=== PATIENT | female | born 1950 | race Caucasian/White ===

== ENCOUNTER 2017-05-08 18:33 | Inpatient (IN) | payer OTHER ==
[~2017-05-08] VITALS: Ht 170.2 cm; Wt 65.3 kg
[2017-05-08 18:33] VITALS: BP 155/81
--- NOTE | 2017-05-08 18:35 | NUR ---
67/F BIBA FOR ALOC X3 HOURS; PT BIBA FROM [facility] [place] FOR [place]OC. HX A.FIB, HTN, COPD. BRUISE TO R HIP.BLL SWELLING. LUNGS CLEAR BL; PATIENT POSITIONED FOR COMFORT; HOB ELEVATED; BEDRAILS UP X2; BED DOWN. ER MD MADE AWARE OF PT STATUS.
[2017-05-08] MEDS ORDERED: NACL 0.9% 1,000 ML IV ONE (18:40)
[2017-05-08] MEDS ORDERED: UMEC1POW IH (18:47)
[2017-05-08] MEDS ORDERED: PANT40EC PO (18:47)
[2017-05-08] MEDS ORDERED: LEVA0.6318 INH (18:47)
[2017-05-08] MEDS ORDERED: ALBU1SPR IH (18:47)
[2017-05-08] MEDS ORDERED: SENN-73 PO (18:47)
[2017-05-08] MEDS ORDERED: FOLI1TAB89 PO (18:47)
[2017-05-08] MEDS ORDERED: VITB12 PO (18:47)
[2017-05-08] MEDS ORDERED: ACET-2869 PO (18:47)
[2017-05-08] MEDS ORDERED: FERR325E14 PO (18:47)
[2017-05-08] MEDS ORDERED: VITD1000 PO (18:47)
--- NOTE | 2017-05-08 19:10 | NUR ---
CT CALLED TO TAKE PT TO CT
[2017-05-08 19:55] LABS: ANION GAP 17.2 (8-16); CREATININE 1.3 mg/dL (0.6-1.3); POTASSIUM 4.2 mmol/L (3.5-5.1); TOTAL BILIRUBIN 4.8 mg/dL (0.0-1.0)
[2017-05-08 19:59] LABS: RED BLOOD CELL COUNT(AUTO) 2.49 MIL/uL (4.20-5.40); WHITE BLOOD COUNT (AUTO) 5.1 K/uL (4.8-10.8)
[2017-05-08 20:00] LABS: HEMATOCRIT 25.9 % (36-48); HEMOGLOBIN 8.6 g/dL (12.0-16.0); MEAN CORPUSCULAR HEMOGLOBIN 34 pg (27-31); MEAN CORPUSCULAR HGB CONC 33 g/dL (33-37); MEAN CORPUSCULAR VOLUME 104 fL (80-94)
[2017-05-08] MEDS ORDERED: MORPHINE SULFATE 2 MG/ML SYR IVP ONE (20:00)
[2017-05-08 20:01] LABS: PLATELET COUNT (AUTO) 99 K/uL (140-450)
[2017-05-08 20:07] LABS: NEUTROPHILS % (AUTO) 73.3 % (42.2-75.2)
[2017-05-08 20:08] LABS: BASOPHILS % (AUTO) 0.3 % (0.0-2.0); EOSINOPHILS % (AUTO) 0.5 % (0.0-4.0); LYMPHOCYTES # (AUTO) 0.8 K/uL (2.5-16.5); LYMPHOCYTES % (AUTO) 15.1 % (20.5-51.1); MONOCYTES # (AUTO) 0.6 K/uL (0.8-1.0); MONOCYTES % (AUTO) 10.8 % (1.7-9.3); NEUTROPHILS # (AUTO) 3.8 K/uL (1.8-7.7)
[2017-05-08 20:22] LABS: APPEARANCE,URINE CLOUDY (CLEAR); BILIRUBIN,URINE NEGATIVE (NEGATIVE); BLOOD, URINE 3+ (NEGATIVE); COLOR,URINE YELLOW (YELLOW); LEUKOCYTE ESTERASE ,URINE 1+ (NEGATIVE); NITRITE, URINE NEGATIVE (NEGATIVE); UGLUCOSE NEGATIVE (NEGATIVE)
--- NOTE | 2017-05-08 20:30 | NUR ---
PT TAKEN TO CT
[2017-05-08] MEDS ORDERED: NACL 0.9% 2,000 ML IV ONE (20:40)
[2017-05-08 20:41] LABS: RBC,URINE TOO NUMEROUS TO COUN /HPF (0-5); WBC,URINE TOO MANY TO COUNT /HPF (0-5)
--- NOTE | 2017-05-08 21:06 | NUR ---
PT BACK FROM CT
[2017-05-08] MEDS ORDERED: LEVOFLOXACIN 500 MG/D5W PREMIX 100 ML IV ONE (21:15)
--- NOTE | 2017-05-08 21:15 | NUR ---
LABS CALLED FOR BLOOD CX DRAW, PER LAB " WE WILL BE RIGHT THERE"
[2017-05-08] MEDS: NACL 0.9% 1,000 ML IV SCH (21:41)
[2017-05-08] MEDS ORDERED: KETOROLAC 30 MG/ML VIAL IVP PRN (21:45)
[2017-05-08] MEDS ORDERED: DOCUSATE SODIUM 100 MG GELCAP PO PRN (21:45)
[2017-05-08] MEDS ORDERED: ACETAMINOPHEN 325 MG TAB PO PRN (21:45)
[2017-05-08] MEDS ORDERED: HYDROcodone/APAP 7.5/325 MG 1 TAB PO PRN (21:45)
[2017-05-08] MEDS ORDERED: ONDANSETRON 4 MG/2 ML VIAL IM/IVP PRN (21:45)
--- NOTE | 2017-05-08 22:00 | NUR ---
Patient will be admitted to care of [facility]. Admited to TELE. Will go to room 106A. Belongings list completed. BEDSIDE Report to DANIEL PLUMMER. IV PATENT AND INFUSING
[2017-05-08 22:05] VITALS: BP 137/59
--- NOTE | 2017-05-08 22:05 | NUR ---
PATIENT ADMITTED TO THE UNIT FROM ER. PATIENT IS AOX1. UNABLE TO ANSWER QUESTION DUE TO MENTAL STATUS. NO SIGNS AND SYMPTOMS OF DISTRESS NOTED AT THIS TIME. FLACC 0. PATIENT IS ON O2 2L VIA NC. IV SITE NOTED ON LEFT HAND, IVF INFUSING WELL. SAFETY PRECAUTIONS IN PLACE. VITAL SIGNS AND MRSA TAKEN. BED IN LOWEST POSITION, SIDE RAILS UP AND CALL LIGHT WITHIN REACH. WILL CONTINUE TO MONITOR.
--- NOTE | 2017-05-08 22:30 | NUR ---
PATIENT'S SON DANELLE PRESENT AT BEDSIDE. WAS ABLE TO ANSWER SOME QUESTIONS ABOUT PATIENT'S MEDICAL HISTORY.
[2017-05-08 22:49] LABS: PROTHROMBIN TIME 14.8 secs (10.8-13.4)
[2017-05-08 23:11] LABS: CHOL/HDL RATIO 3.7 (1-4.5); MAGNESIUM 1.6 mg/dL (1.8-2.4); PHOSPHORUS 3.2 mg/dL (2.5-4.9); THYROID STIMULATING HORMONE 2.03 uIU/mL (0.34-3.74)
[2017-05-09] VITALS: BP 149/75
--- NOTE | 2017-05-09 00:40 | NUR ---
PATIENT TRIED GETTING OUT OF BED. PATIENT IS CONFUSED, TRYING TO PULL OUT IV AND TELE LEADS. TRIED TO REORIENT PATIENT. ASSISTED HER BACK INTO BED WITH MANUFACTURING ENGINEER SUPERVISOR. PATIENT RESTLESS, MOANING IN PAIN. FLACC 7. WILL MEDICATE ORDERED.
[2017-05-09] MEDS: MORPHINE SULFATE 4 MG/ML SYR IVP PRN (00:54)
[2017-05-09] MEDS ORDERED: cefTRIAXone 1,000 MG VIAL ONE (01:54)
--- NOTE | 2017-05-09 03:00 | NUR ---
CHECKED ON PATIENT. PATIENT IS ASLEEP. NO SIGNS AND SYMPTOMS OF DISTRESS NOTED. BREATHING EVEN AND UNLABORED. WILL CONTINUE TO MONITOR.
[2017-05-09 04:00] VITALS: BP 143/60
[2017-05-09] MEDS ORDERED: diphenhydrAMINE 50 MG/ML VIAL IVP SCH (05:00)
--- NOTE | 2017-05-09 05:00 | NUR ---
PATIENT TRIED GETTING OUT OF BED. PATIENT IS CONFUSED, TRYING TO PULL OUT IV AND TELE LEADS. TRIED TO REORIENT PATIENT. NOTIFIED DR. ANNE. ORDERS RECEIVED
[2017-05-09] MEDS: NACL 0.9% 1,000 ML IV SCH ×2 (06:35→18:30)
--- NOTE | 2017-05-09 07:30 | NUR ---
PATIENT REPORT GIVEN TO MORNING NURSE AT BEDSIDE FOR CONTINUITY OF CARE. PATIENT IS IN STABLE CONDITION.
[2017-05-09 08:00] VITALS: BP 156/82
[2017-05-09] MEDS ORDERED: PANTOPRAZOLE 40 MG INJ VIAL IVP SCH (09:00)
[2017-05-09] MEDS: SENNA 8.6 MG TAB PO SCH ×3 (10:01→21:00)
[2017-05-09] MEDS: LACTOBACILLUS RHAMNOSUS GG 1 EACH CAP PO SCH ×2 (10:01→10:07)
[2017-05-09] MEDS: FERROUS SULFATE 325 MG TABEC PO SCH ×3 (10:01→18:29)
--- NOTE | 2017-05-09 10:06 | NUR ---
PATIENT HAS BEEN SCREENED AND CATEGORIZED HIGH NUTRITION RISK. PATIENT WILL BE SEEN WITHIN 1-2 DAYS OF ADMISSION. 05/08/17-05/09/[address]
[2017-05-09 12:00] VITALS: BP 153/67
--- NOTE | 2017-05-09 14:00 | NUR ---
05/09/2017 RD INITIAL ASSESSMENT COMPLETED PLEASE REFER TO NUTRITION ASSESSMENT UNDER CARE ACTIVITY FOR ESTIMATED NUTRITIONAL NEEDS. NURSING AND DIETARY STAFF TO ENCOURAGE INCREASED INTAKE MENTAL STATUS IMPROVES RD TO FOLLOW-UP IN 2-3 DAYS PATIENT IS HIGH RISK. MAGGIE ROBERTSON, RD
[2017-05-09 16:00] VITALS: BP 145/70
--- NOTE | 2017-05-09 17:05 | NUR ---
FAXED INITIAL REVIEW TO [facility] [phone] PHONE [phone], SETH
--- NOTE | 2017-05-09 19:30 | NUR ---
PATIENT REPORT RECEIVED FROM MORNING NURSE AT BEDSIDE. PATIENT CURRENTLY GETTING ULTRASOUND. NO SIGNS AND SYMPTOMS OF DISTRESS NOTED. PATIENT AOX1. IV SITE ON LEFT HAND, IVF INFUSING WELL. PATIENT ON O2 2L NC. SAFETY PRECAUTIONS IN PLACE. BED IN LOWEST POSITION, SIDE RAILS UP AND CALL LIGHT WITHIN REACH. WILL CONTINUE TO MONITOR.
[2017-05-09 20:00] VITALS: BP 152/82
[2017-05-09] MEDS: CHOLECALCIFEROL 1,000 IU TAB PO SCH ×2 (20:42→21:00)
[2017-05-09] MEDS: FOLIC ACID 1 MG TAB PO SCH (21:00)
[2017-05-09] MEDS: CYANOCOBALAMIN 1,000 MCG TAB PO SCH (21:00)
--- NOTE | 2017-05-09 21:26 | NUR ---
MEDICATION EDUCATION GIVEN TO PATIENT. PATIENT SPIT OUT VIT D TAB. VIT D WASTED. PATIENT REFUSED ALL OTHER MEDS. DR. ANNE NOTIFIED OF PATIENT'S REFUSAL OF MEDS
[2017-05-10] VITALS: BP 145/78
--- NOTE | 2017-05-10 | NUR ---
CHECKED ON PATIENT. PATIENT IS ASLEEP. NO SIGNS AND SYMPTOMS OF DISTRESS NOTED. BREATHING EVEN AND UNLABORED. WILL CONTINUE TO MONITOR.
[2017-05-10] MEDS: MORPHINE SULFATE 4 MG/ML SYR IVP PRN (01:46)
[2017-05-10] MEDS ORDERED: MAG SULF 2000 MG/WATER PREMIX 50 ML IV SCH (03:00)
[2017-05-10] MEDS: NACL 0.9% 1,000 ML IV SCH ×2 (03:41→13:24)
[2017-05-10 04:00] VITALS: BP 139/80
--- NOTE | 2017-05-10 04:00 | NUR ---
CHECKED ON PATIENT. PATIENT IS ASLEEP. NO SIGNS AND SYMPTOMS OF DISTRESS NOTED. BREATHING EVEN AND UNLABORED. WILL CONTINUE TO MONITOR.
[2017-05-10] MEDS: PANTOPRAZOLE 40 MG TABEC PO SCH (06:13)
[2017-05-10 06:42] LABS: BASOPHILS # (AUTO) 0.1 K/uL (0.00-0.22); BASOPHILS % (AUTO) 2.9 % (0.0-2.0); EOSINOPHILS # (AUTO) 0.1 K/uL (0-0.4); EOSINOPHILS % (AUTO) 2.2 % (0.0-4.0); HEMATOCRIT 24.6 % (36-48); HEMOGLOBIN 8.3 g/dL (12.0-16.0); LYMPHOCYTES % (AUTO) 20.7 % (20.5-51.1); MEAN CORPUSCULAR HEMOGLOBIN 35 pg (27-31); MEAN CORPUSCULAR HGB CONC 34 g/dL (33-37); MEAN CORPUSCULAR VOLUME 103 fL (80-94); MONOCYTES # (AUTO) 0.5 K/uL (0.8-1.0); MONOCYTES % (AUTO) 9.4 % (1.7-9.3); NEUTROPHILS # (AUTO) 3.2 K/uL (1.8-7.7); NEUTROPHILS % (AUTO) 64.8 % (42.2-75.2); PLATELET COUNT (AUTO) 94 K/uL (140-450); RED CELL DISTRIBUTION WIDTH 20.5 % (11.6-13.7); WHITE BLOOD COUNT (AUTO) 4.9 K/uL (4.8-10.8)
[2017-05-10 07:23] LABS: T4 (THYROXINE) 8.3 ug/dL (4.5-12.0)
--- NOTE | 2017-05-10 07:30 | NUR ---
PATIENT REPORT GIVEN TO MORNING NURSE AT BEDSIDE. PATIENT IS IN STABLE CONDITION.
--- NOTE | 2017-05-10 07:31 | NUR ---
RECEIVED REPORT FROM ARTIFICIAL FOLIAGE ARRANGER RN. PATIENT HAS NO SIGNS AND SYMPTOMS OF ACUTE DISTRESS NOTED AT THIS TIME. ALL SAFETY MEASURES ARE IN PLACE. IV INFUSING WELL AT THIS TIME. WILL CONTINUE TO MONITOR.
[2017-05-10 07:34] LABS: MAGNESIUM 1.8 mg/dL (1.8-2.4); PHOSPHORUS 2.8 mg/dL (2.5-4.9)
[2017-05-10 07:37] LABS: ANION GAP 17.3 (8-16); CARBON DIOXIDE 15.1 mmol/L (21-32); CREATININE 1.1 mg/dL (0.6-1.3); POTASSIUM 3.4 mmol/L (3.5-5.1)
[2017-05-10 08:00] VITALS: BP 151/82
[2017-05-10 08:18] LABS: FOLIC ACID > 20.00 ng/mL (>3.0)
[2017-05-10] MEDS: LACTULOSE 20 GM/30 ML UDC PO SCH ×3 (09:25→17:25)
[2017-05-10] MEDS: FERROUS SULFATE 325 MG TABEC PO SCH ×3 (09:37→17:25)
[2017-05-10] MEDS ORDERED: POTASSIUM CHLORIDE 20% 40 MEQ/15 ML UDC PO SCH (12:35)
[2017-05-10] MEDS ORDERED: LISINOPRIL 5 MG TAB PO SCH (13:05)
[2017-05-10] MEDS: NEOMYCIN 500 MG TAB PO SCH ×3 (13:27→23:37)
--- NOTE | 2017-05-10 19:30 | NUR ---
ENDORSED PATIENT TO VEST BUSHELER RN FOR CONTINUITY OF CARE. PATIENT IN STABLE CONDITION.
--- NOTE | 2017-05-10 19:30 | NUR ---
RECEIVED PT SLEEPING, AROUSABLE TO TOUCH, AAOX1, VERBALLY RESPONSIVE AND ABLE FOLLOW COMMANDS, ON O2 AT 2L/NC, NO SOB NOTED, FLACC-0, IVF INFUSING WELL, SCD'S IN PLACE, PITTING EDEMA NOTED TO BLE, SAFETY MEASURES IN PLACE, WILL REPOSITION Q2H AND OFFLOAD PRESSURE AREAS, SIDE RAILS UP AND BED ALARM ON, CALL LIGHT WITHIN REACH.
[2017-05-10] MEDS: FOLIC ACID 1 MG TAB PO SCH (20:26)
[2017-05-10] MEDS: SENNA 8.6 MG TAB PO SCH (20:27)
[2017-05-10] MEDS: CHOLECALCIFEROL 1,000 IU TAB PO SCH (20:28)
[2017-05-10] MEDS: CYANOCOBALAMIN 1,000 MCG TAB PO SCH (20:35)
--- NOTE | 2017-05-10 20:35 | NUR ---
DUE PO MEDS CRUSHED AND GIVEN WITH APPLE SAUCE FOLLOWED BY ORANGE JUICE, PT TOOK A LONG TIME TO TAKE MEDS AND NEEDS A LOT OF ENCOURAGEMENT BUT ABLE TO TOLERATE WELL, DUE ROCEPHIN IVPB ADMINISTERED, ALL NEEDS ATTENDED.
--- NOTE | 2017-05-10 22:10 | NUR ---
PT INCONTINENT OF URINE, PERINEAL CARE DONE, NO BM AT THIS TIME, REPOSITIONED AND OFFLOAD PRESSURE AREAS, MONITORED CLOSELY.
[2017-05-11] VITALS: BP 148/57
--- NOTE | 2017-05-11 | NUR ---
PT SLEEPING, EASILY AROUSABLE, DUE MEDICATION CRUSHED AND GIVEN WITH APPLE SAUCE, TOLERATED WELL, VITAL SIGNS STABLE, NO SIGNS OF DISTRESS, CONTINUE TO MONITOR CLOSELY.
[2017-05-11 03:44] LABS: CARBON DIOXIDE 15.6 mmol/L (21-32); POTASSIUM 3.6 mmol/L (3.5-5.1)
[2017-05-11 03:45] LABS: CREATININE 1.2 mg/dL (0.6-1.3)
--- NOTE | 2017-05-11 04:30 | NUR ---
BM WITH SOFT BLACK STOOL MODERATE AMOUNT, STOOL OB SPECIMEN SENT TO LAB.
[2017-05-11] MEDS: NEOMYCIN 500 MG TAB PO SCH ×3 (06:29→20:16)
[2017-05-11] MEDS: PANTOPRAZOLE 40 MG TABEC PO SCH (06:29)
[2017-05-11] MEDS: NACL 0.9% 1,000 ML IV SCH (06:33)
[2017-05-11 07:03] LABS: BASOPHILS # (AUTO) 0.2 K/uL (0.00-0.22); BASOPHILS % (AUTO) 4.7 % (0.0-2.0); EOSINOPHILS # (AUTO) 0.2 K/uL (0-0.4); EOSINOPHILS % (AUTO) 4.8 % (0.0-4.0); HEMATOCRIT 23.5 % (36-48); HEMOGLOBIN 7.8 g/dL (12.0-16.0); LYMPHOCYTES % (AUTO) 22.1 % (20.5-51.1); MEAN CORPUSCULAR HEMOGLOBIN 34 pg (27-31); MEAN CORPUSCULAR HGB CONC 33 g/dL (33-37); MEAN CORPUSCULAR VOLUME 103 fL (80-94); MONOCYTES # (AUTO) 0.5 K/uL (0.8-1.0); MONOCYTES % (AUTO) 10.1 % (1.7-9.3); NEUTROPHILS # (AUTO) 2.6 K/uL (1.8-7.7); NEUTROPHILS % (AUTO) 58.3 % (42.2-75.2); PLATELET COUNT (AUTO) 94 K/uL (140-450); RED BLOOD CELL COUNT(AUTO) 2.28 MIL/uL (4.20-5.40); RED CELL DISTRIBUTION WIDTH 19.9 % (11.6-13.7); WHITE BLOOD COUNT (AUTO) 4.5 K/uL (4.8-10.8)
--- NOTE | 2017-05-11 07:20 | NUR ---
PT SLEEPING, NO SIGNS OF DISTRESS, REPORT GIVEN TO RIKI FOR CONTINUITY OF CARE.
--- NOTE | 2017-05-11 07:20 | NUR ---
ASSUMED CONTINUITY OF CARE. NO SIGNS AND SYMPTOMS OF ACUTE DISTRESS NOTED. INITIAL ASSESSMENT DONE. RE-ORIENTED TO EVENTS AND SURROUNDINGS. KEEP COMFORTABLE ON BED. EXPLAINED DIAGNOSIS, PLAN OF CARE, PAIN MANAGEMENT TEACHING, CONTACT ISOLATION PRECAUTION, USE OF CALL LIGHT/BED/TV/BATHROOM. FALL PRECAUTION APPLIED. CALL LIGHT WITHIN REACH.
[2017-05-11 08:00] VITALS: BP 142/64
--- NOTE | 2017-05-11 08:00 | NUR ---
Patient's Plan of Care was discussed and reviewed with FUNDRAISING SPECIALIST: RIKI
[2017-05-11] MEDS: FERROUS SULFATE 325 MG TABEC PO SCH (08:40)
[2017-05-11] MEDS: LACTULOSE 20 GM/30 ML UDC PO SCH ×3 (08:41→17:08)
[2017-05-11] MEDS: LACTOBACILLUS RHAMNOSUS GG 1 EACH CAP PO SCH (08:41)
[2017-05-11] MEDS: SENNA 8.6 MG TAB PO SCH ×2 (08:41→20:15)
[2017-05-11 08:55] LABS: ANION GAP 15.8 (8-16); CARBON DIOXIDE 15.3 mmol/L (21-32); CREATININE 1.1 mg/dL (0.6-1.3); POTASSIUM 3.1 mmol/L (3.5-5.1)
[2017-05-11] MEDS ORDERED: LISINOPRIL 5 MG TAB PO SCH (09:00)
[2017-05-11 09:01] LABS: MAGNESIUM 1.9 mg/dL (1.8-2.4)
[2017-05-11] MEDS ORDERED: POTASSIUM CHLORIDE 20% 40 MEQ/15 ML UDC PO SCH (10:15)
--- NOTE | 2017-05-11 10:20 | NUR ---
ADMINISTERED IV ABX. PT TOLERATING WELL.
[2017-05-11] MEDS ORDERED: POTASSIUM CHLORIDE 40 MEQ, LIDOCAINE 1% 25 MG in NACL 0.9% 250 ML IV ONE (10:45)
--- NOTE | 2017-05-11 11:06 | NUR ---
05/11/17 RD FOLLOW UP COMPLETED PLEASE REFER TO NUTRITION PROGRESS NOTE UNDER CARE ACTIVITY FOR ESTIMATED NUTRITION NEEDS. RD RECOMMENDATIONS: 1.NURSING AND DIETARY STAFF TO ENCOURAGE INCREASED INTAKE MENTAL STATUS IMPROVES. 2.RDN TO PROVIDE HEALTH SHAKES WITH MEALS TID TO HELP MEET NUTRITION NEEDS. 3.RDN TO FOLLOW-UP IN 2-3 DAYS PATIENT IS HIGH RISK. VIKAS SEALS MS, RDN
[2017-05-11] MEDS ORDERED: SPIRONOLACTONE 25 MG TAB PO SCH (11:26)
[2017-05-11 12:00] VITALS: BP 149/73
[2017-05-11] MEDS: FERRIC GLUCONATE 125 MG in NACL 0.9% 100 ML IV SCH (12:05)
--- NOTE | 2017-05-11 15:05 | NUR ---
PT. INES HAWK CAME, EXPLAINED ABOUT DR. LOBO ORDER OF CONSENT FOR EGD/COLONOSCOPY. PER PTEsther HAWK, PT. HAD EGD IN [facility] ON MAY 01, 2017. PT. INES HAWK SIGNED COLONOSCOPY CONSENT. ASKED FOR ANY CONCERN OR QUESTION REGARDING COLONOSCOPY. NO QUESTION OR CONCERN RECEIVED. INFORMED CHARGE NURSE ISIDRO ORTEZ.
--- NOTE | 2017-05-11 15:23 | NUR ---
CALLED DR. LOBO AND INFORMED THAT PER PT. SON -DANELLE, PT. HAD EGD ON MAY 01, 2017 IN [facility], AND DANELLE JUST SIGNED COLONOSCOPY CONSENT FORM. DR. LOBO SAID THAT'S FINE, WE ARE JUST WAITING FOR MEDICAL RECORDS FROM [facility]. INFORMED CHARGE NURSE ISIDRO ORTEZ.
--- NOTE | 2017-05-11 19:10 | NUR ---
RECEIVED PT AWAKE WATCHING TV, IVF OFF AT THIS TIME, PT WANTS TO KNOW WHAT TIME CAN HE HAVE HIS NEXT PAIN MEDICATION, MADE AWARE OF NEXT DUE TIME, TOLERATING FULL LIQUID DIET, PLAN OF CARE DISCUSS, CALL LIGHT WITHIN REACH. Addendum: 05/11/17 at 2125 by Theodore Pearson RN CHARTED ON WRONG PT.
--- NOTE | 2017-05-11 19:10 | NUR ---
REPORT GIVEN TO ANNIE ORTEZ. IVF INFUSING WELL. IN STABLE CONDITION.
--- NOTE | 2017-05-11 19:12 | NUR ---
RECEIVED PT SLEEPING, EASILY AROUSABLE, AAOX2, FORGETFUL AT TIMES, ON O2 AT 2L/NC, NO SOB NOTED, MITTENS IN PLACE, IVF INFUSING WELL, DENIES ANY PAIN, SCD IN PLACE, ON FALL PRECAUTION, SIDE RAILS UP AND BED ALARM ON, CALL LIGHT WITHIN REACH.
[2017-05-11] MEDS: CHOLECALCIFEROL 1,000 IU TAB PO SCH (20:15)
[2017-05-11] MEDS: POTASSIUM CHLORIDE 20% 40 MEQ/15 ML UDC GT SCH (20:16)
[2017-05-11] MEDS: FOLIC ACID 1 MG TAB PO SCH (20:16)
--- NOTE | 2017-05-11 20:20 | NUR ---
DUE PO MEDS CRUSHED AND GIVEN WITH CHOCOLATE PUDDING, TOLERATED WELL, PT WITH SOFT MODERATE BM, PERINEAL CARE DONE, DUE ANUCORT SUPP GIVEN, REPOSITIONED Q2H AND OFFLOAD PRESSURE AREAS, ALL NEEDS ATTENDED.
[2017-05-11] MEDS ORDERED: HYDROCORTISONE ACETATE 25 MG SUPP RC SCH (21:00)
--- NOTE | 2017-05-11 22:00 | NUR ---
ROUNDS MADE, PT STILL AWAKE, PT ANXIOUS ABOUT PROCEDURE TOMORROW, PT MADE AWARE THAT PER REPORT FROM AM NURSE RIKI, PROCEDURE IS BE DONE ON FRIDAY OR IN 2 DAYS, PT SAID "NANCY", COLONOSCOPY CONSENT WAS SIGNED BY PT'S SON.
[2017-05-12] VITALS: BP 145/68
--- NOTE | 2017-05-12 | NUR ---
PT SLEEPING, AROUSABLE TO TOUCH, VITAL SIGNS SLIGHTLY ELEVATED BUT STABLE, DENIES ANY PAIN, IVF INFUSING WELL, CONTINUE TO MONITOR CLOSELY.
--- NOTE | 2017-05-12 03:40 | NUR ---
PT HAD MODERATE SOFT BLACK STOOL, PERINEAL CARE DONE, CONTINUE TO REPOSITIONED AND OFFLOAD PRESSURE AREAS.
[2017-05-12] MEDS: NACL 0.9% 1,000 ML IV SCH (04:30)
[2017-05-12] MEDS: PANTOPRAZOLE 40 MG TABEC PO SCH (05:33)
[2017-05-12] MEDS: NEOMYCIN 500 MG TAB PO SCH ×3 (05:34→20:19)
--- NOTE | 2017-05-12 05:35 | NUR ---
DUE PO MEDICATIONS GIVEN WITH CHOCOLATE PUDDING, TOLERATED WELL, REQUESTING FOR APPLE JUICE, ABLE TO FINISHED HALF OF IT, IVF INFUSING WELL, SIDE RAILS UP AND BED ALARM ON, MONITORED CLOSELY.
[2017-05-12 06:55] LABS: HEMATOCRIT 24.4 % (36-48); MEAN CORPUSCULAR HEMOGLOBIN 34 pg (27-31); MEAN CORPUSCULAR HGB CONC 33 g/dL (33-37); MEAN CORPUSCULAR VOLUME 102 fL (80-94); PLATELET COUNT (AUTO) 93 K/uL (140-450); RED BLOOD CELL COUNT(AUTO) 2.38 MIL/uL (4.20-5.40); RED CELL DISTRIBUTION WIDTH 19.6 % (11.6-13.7); WHITE BLOOD COUNT (AUTO) 4.2 K/uL (4.8-10.8)
--- NOTE | 2017-05-12 07:15 | NUR ---
PT AWAKE, NO SIGNS OF DISTRESS, BEDSIDE REPORT GIVEN TO KAVITHA HUYNH FOR CONTINUITY OF CARE.
[2017-05-12 07:37] LABS: EOSINOPHILS % (MANUAL) 7 % (0-4); LYMPHOCYTES % (MANUAL) 27 % (20-46); MONOCYTES % (MANUAL) 6 % (5-12)
[2017-05-12 07:40] LABS: ANION GAP 16.6 (8-16); CARBON DIOXIDE 14.4 mmol/L (21-32)
[2017-05-12 07:46] LABS: MAGNESIUM 1.7 mg/dL (1.8-2.4); PHOSPHORUS 2.6 mg/dL (2.5-4.9)
[2017-05-12 08:00] VITALS: BP 153/69
[2017-05-12 08:09] LABS: HEPATITIS A ANTIBODY IGM Negative (Negative); HEPATITIS B CORE AB TOTAL Negative (Negative); HEPATITIS B SURFACE ANTIBODY Non Reactive (.); HEPATITIS B SURFACE ANTIGEN Negative (Negative)
[2017-05-12] MEDS: POTASSIUM CHLORIDE 20% 40 MEQ/15 ML UDC GT SCH ×2 (10:14→20:18)
[2017-05-12] MEDS: SENNA 8.6 MG TAB PO SCH ×3 (10:15→18:21)
[2017-05-12] MEDS: LACTULOSE 20 GM/30 ML UDC PO SCH ×3 (10:15→18:22)
[2017-05-12] MEDS: LACTOBACILLUS RHAMNOSUS GG 1 EACH CAP PO SCH (10:15)
[2017-05-12] MEDS: SPIRONOLACTONE 25 MG TAB PO SCH (10:16)
[2017-05-12] MEDS ORDERED: HYDROCORTISONE ACETATE 25 MG SUPP RC SCH (10:32)
[2017-05-12] MEDS ORDERED: MAGNESIUM CITRATE 300 ML BTL PO SCH (10:54)
[2017-05-12] MEDS: FERRIC GLUCONATE 125 MG in NACL 0.9% 100 ML IV SCH (12:24)
--- NOTE | 2017-05-12 13:17 | NUR ---
ENDOSCOPY TECH note [id number]. Bedside swallow evaluation completed, please see report for details. ENDOSCOPY TECH provided pt and pt's sister (at bedside) with education regarding purpose of evaluation and rationale for recommendations. Pt and pt's sister verbalized understanding and agreement at this time. Recommend: 1) when cleared for advanced textures by GI: regular textures with thin liquids 2) general aspiration precautions (including pt must be fully awake/alert/upright for any PO intakes, alternate small/slow bites and sips, stop giving PO if pt becomes less alert/SOB/coughing) 3) no further ENDOSCOPY TECH intervention indicated at this time. Physician may reorder if further concerns arise, as appropriate. G-codes: [id number] [id number] [id number] [facility] NOMS level 7. PVE for d/w RN (Kraig) prior to and following bedside swallow evaluation completion.
--- NOTE | 2017-05-12 13:25 | NUR ---
CM NOTE PER [facility], PROVIDED LIST OF CONTRACTED FACILITIES: - [facility] [place] [facility] - [facility] - [facility] - [facility] - [facility]
--- NOTE | 2017-05-12 14:05 | NUR ---
CM NOTE CONCURRENT REVIEW FAXED TO [facility] / FAX# [phone], ATTN: SETH #[phone]
--- NOTE | 2017-05-12 15:48 | NUR ---
PHYSICAL THERAPY CO-SIGN The Physical Therapy Progress Notes documented by Night Time Nanny have been reviewed. Reviewed/Co-Signed by: Dunia Harrison PT Documentation Done by: RANCHO LAZAR PTA IMPROVED BED MOBILITY BUT STILL LIMITED WITH OUT OF BED ACTIVITY. Addendum: 05/13/17 at 0849 by Dunia Harrison PT Amended: Links added.
[2017-05-12 16:00] VITALS: BP 128/60
[2017-05-12] MEDS ORDERED: ACETAMINOPHEN EXTRA STRENGTH 500 MG TAB PO PRN (16:55)
[2017-05-12] MEDS ORDERED: LORATADINE 10 MG TAB PO PRN (16:55)
[2017-05-12] MEDS ORDERED: LACTULOSE 20 GM/30 ML UDC PO SCH (17:15)
[2017-05-12] MEDS ORDERED: MAGNESIUM OXIDE 400 MG TAB PO SCH (17:15)
--- NOTE | 2017-05-12 19:39 | NUR ---
PT REPORT GIVEN AT BEDSIDE PT IN STABLE CONDITION
--- NOTE | 2017-05-12 19:40 | NUR ---
PATIENT REPORT RECEIVED FROM MORNING NURSE AT BEDSIDE. PATIENT IS AWAKE, ALERT AND ORIENTED. PATIENT'S SON IS AT BEDSIDE. NO SIGNS AND SYMPTOMS OF DISTRESS NOTED. PATIENT ON O2 3L VIA NC. IV SITE NOTED ON RIGHT HAND, IVF INFUSING WELL. BED IN LOWEST POSITION, SIDE RAILS UP AND CALL LIGHT WITHIN REACH. WILL CONTINUE TO MONITOR.
[2017-05-12] MEDS: FOLIC ACID 1 MG TAB PO SCH (20:19)
[2017-05-12] MEDS: CHOLECALCIFEROL 1,000 IU TAB PO SCH (20:19)
[2017-05-12] MEDS: HYDROCORTISONE ACETATE 25 MG SUPP RC SCH (21:00)
--- NOTE | 2017-05-12 21:00 | NUR ---
ANUCORT HC SUPP NOT AVAILABLE. IT TECHNICAL SUPPORT SPECIALIST AWARE
--- NOTE | 2017-05-12 22:00 | NUR ---
PATIENT HAD A BOWEL MOVEMENT. STOOL WAS LIGHT BROWN AND MODERATE IN AMOUNT PERICARE WAS DONE. PATIENT REPOSITIONED FOR COMFORT. PATIENT TOLERATED WELL. WILL CONTINUE TO MONITOR.
[2017-05-13] VITALS: BP 148/67
--- NOTE | 2017-05-13 | NUR ---
CHECKED ON PATIENT. PATIENT IS ASLEEP, NO SIGNS AND SYMPTOMS OF DISTRESS NOTED. BREATHING EVEN AND UNLABORED. WILL CONTINUE TO MONITOR.
--- NOTE | 2017-05-13 02:51 | NUR ---
CHECKED ON PATIENT. PATIENT IS ASLEEP. NO SIGNS AND SYMPTOMS OF DISTRESS NOTED. BREATHING EVEN AND UNLABORED. WILL CONTINUE TO MONITOR.
[2017-05-13] MEDS: NEOMYCIN 500 MG TAB PO SCH ×3 (05:39→20:30)
[2017-05-13] MEDS: PANTOPRAZOLE 40 MG TABEC PO SCH (05:39)
[2017-05-13 07:19] LABS: ANION GAP 14.2 (8-16); CARBON DIOXIDE 15.2 mmol/L (21-32); POTASSIUM 4.4 mmol/L (3.5-5.1)
[2017-05-13 07:20] LABS: BASOPHILS # (AUTO) 0.2 K/uL (0.00-0.22); BASOPHILS % (AUTO) 4.7 % (0.0-2.0); EOSINOPHILS # (AUTO) 0.2 K/uL (0-0.4); EOSINOPHILS % (AUTO) 5.6 % (0.0-4.0); HEMATOCRIT 23.9 % (36-48); LYMPHOCYTES # (AUTO) 0.7 K/uL (2.5-16.5); LYMPHOCYTES % (AUTO) 18.7 % (20.5-51.1); MEAN CORPUSCULAR HEMOGLOBIN 35 pg (27-31); MEAN CORPUSCULAR HGB CONC 33 g/dL (33-37); MEAN CORPUSCULAR VOLUME 103 fL (80-94); MONOCYTES # (AUTO) 0.4 K/uL (0.8-1.0); MONOCYTES % (AUTO) 11.8 % (1.7-9.3); NEUTROPHILS # (AUTO) 2.1 K/uL (1.8-7.7); NEUTROPHILS % (AUTO) 59.2 % (42.2-75.2); PLATELET COUNT (AUTO) 90 K/uL (140-450); RED BLOOD CELL COUNT(AUTO) 2.31 MIL/uL (4.20-5.40); RED CELL DISTRIBUTION WIDTH 19.3 % (11.6-13.7); WHITE BLOOD COUNT (AUTO) 3.6 K/uL (4.8-10.8)
--- NOTE | 2017-05-13 07:20 | NUR ---
RECEIVED PATIENT REPORT. PATIENT AWAKE AND ALERT. NO S/S OF DISTRESS NOTED. PATIENT ON 4L O2 VIA NC. NO SOB AT THIS TIME. O2 SAT 94%. PATIENT DENIES ANY DISCOMFORT. FALL PRECAUTIONS IN PLACE. CALL LIGHT WITHIN REACH. WILL CONTINUE TO MONITOR
--- NOTE | 2017-05-13 07:21 | NUR ---
PATIENT REPORT GIVEN TO MORNING NURSE AT BEDSIDE FOR CONTINUITY OF CARE. PATIENT IS IN STABLE CONDITION
[2017-05-13 08:00] VITALS: BP 161/69
[2017-05-13 08:37] LABS: MAGNESIUM 1.8 mg/dL (1.8-2.4); PHOSPHORUS 3.3 mg/dL (2.5-4.9)
[2017-05-13] MEDS: HYDROCORTISONE ACETATE 25 MG SUPP RC SCH ×2 (09:20→20:30)
[2017-05-13] MEDS: POTASSIUM CHLORIDE 20% 40 MEQ/15 ML UDC GT SCH (09:24)
[2017-05-13] MEDS: SPIRONOLACTONE 25 MG TAB PO SCH (09:26)
[2017-05-13] MEDS: SENNA 8.6 MG TAB PO SCH ×2 (09:27→12:45)
[2017-05-13] MEDS: LACTOBACILLUS RHAMNOSUS GG 1 EACH CAP PO SCH (09:27)
[2017-05-13] MEDS: LACTULOSE 20 GM/30 ML UDC PO SCH ×3 (09:27→17:00)
--- NOTE | 2017-05-13 09:30 | NUR ---
PATIENT GIVEN BED BATH. PATIENT VOIDED. PERINEAL CARE GIVEN. PATIENT TURNED AND REPOSITIONED FOR COMFORT
[2017-05-13] MEDS ORDERED: NACL 0.9% 1,000 ML IV SCH (09:55)
--- NOTE | 2017-05-13 10:30 | NUR ---
I contact Patient's Son Alex Ballard at , I introduced my self and explained my role as the certified medical technician assistant, and reason for my call as a response from a note that was left by case liner on 05/12/17. Mr. Ballard stated that yesterday he call and spoke to case liner Zuleima about requesting for a different SNF placement for patient when she is stable and ready to discharge. I explained to Mr. Ballard that pillowcase turner inform me of his request and has provided a list of Senior Living Facilities that Patient can go after she is discharge from [facility]. Mr. Ballard stated that he would like to have a copy of the list, today when he comes to visit his mother. I Inform him that I will drop off list with patient for them to discuss of a couple or more facilities on that list, so the case manger can make efforts to get patient placed. I also made it clear that pillowcase turner will make attempts to get a placement in one of the facilities she may prefer however; there is no guaranties that patient will go to where she prefers. Mr. Ballard thank me for information and ended call.
--- NOTE | 2017-05-13 11:00 | NUR ---
I meet with Patient and her sister at (Bed side). I introduced myself and explained my role as the medical research assistant to Patient, I also inform her that I had contact her Son Alex Ballard at who requested a list of other SNF to have patient go to after she is discharge due to Patient not wanting to go back to same SNF ([facility]). Patient confirmed that she would not want to return to [facility] and thank me for the list. Patient stated she will talk to her son Alex today when he visits her. I told Patient to discuss of a couple or more facilities from the list, so the case manger can make efforts to get patient placed there if possible. I also made it clear to patient that disability case manager will make attempts to get a placement in one of the facilities she may prefer however; there is no guaranties that patient will go to where she prefers. Patient verbalized understanding ofprocess and thank me for the list and information.
[2017-05-13] MEDS: FERRIC GLUCONATE 125 MG in NACL 0.9% 100 ML IV SCH (12:42)
[2017-05-13] MEDS: HYDRAGUARD CREAM TP SCH (13:06)
[2017-05-13] MEDS ORDERED: fentaNYL 0.05 MG/ML VIAL ONE (13:34)
[2017-05-13] MEDS ORDERED: MIDAZOLAM 2 MG/2 ML VIAL ONE (13:34)
[2017-05-13] MEDS ORDERED: diphenhydrAMINE 50 MG/ML VIAL ONE (13:34)
--- NOTE | 2017-05-13 13:47 | NUR ---
PT NOTES CHART REVIEWED AND CLEARED FOR PT BY LINO PENNINGTON. ATTEMPTED TO SEE PATIENT AT 1330 WITH PT REFUSING ALL SKILLED INTERVENTIONS AT THIS TIME D/T HAVING A COLOSCOPY AROUND 1500. FAMILY MEMBERS PRESENT. EDUCATED PT AND FAMILY MEMBERS THE IMPORTANCE /BENEFITS OF PERFORMING PHYSICAL THERAPY. PT STATES, " I DO NOT WANT TO TRY THERAPY TODAY, I WILL TRY TOMORROW." DISCUSSED WITH LINO PENNINGTON OF PT REFUSING THERAPY TODAY. FOLLOW UP WITH PT TOMORROW IF POSSIBLE. Addendum: 05/14/17 at 0905 by Mireya Coyle PT PHYSICAL THERAPY CO-SIGN The Physical Therapy Progress Notes documented by Supervisor Tower have been reviewed. I CONCUR W/PETROLEUM ENGINEERING TEACHER NOTE; WILL FOLLOW UP W/Pt NEXT SCHEDULED TX Reviewed/Co-Signed by: Mireya Coyle PT Documentation Done by: ANTHONY MCKEON, PETROLEUM ENGINEERING TEACHER
--- NOTE | 2017-05-13 14:04 | NUR ---
FAXED CONCURRENT REVIEW TO [facility] [phone] PHONE SETH [phone]
[2017-05-13 16:00] VITALS: BP 142/71
--- NOTE | 2017-05-13 16:03 | NUR ---
PATIENT BACK FROM COLONOSCOPY
[2017-05-13] MEDS ORDERED: fentaNYL 0.05 MG/ML VIAL IVP ONE (16:25)
[2017-05-13] MEDS ORDERED: MIDAZOLAM 2 MG/2 ML VIAL IVP ONE (16:25)
--- NOTE | 2017-05-13 18:00 | NUR ---
PATIENT TOLERATING REGULAR DIET WELL
--- NOTE | 2017-05-13 19:29 | NUR ---
PATIENT REPORT GIVEN AT BEDSIDE. PATIENT ENDORSED IN STABLE CONDITION
--- NOTE | 2017-05-13 19:30 | NUR ---
PATIENT REPORT RECEIVED FROM MORNING NURSE AT BEDSIDE. PATIENT IS AWAKE, ALERT AND ORIENTED. NO SIGNS AND SYMPTOMS OF DISTRESS NOTED. PATIENT ON O2 3L VIA NC. IV SITE NOTED ON RIGHT HAND, IVF INFUSING WELL. BED IN LOWEST POSITION, SIDE RAILS UP AND CALL LIGHT WITHIN REACH. WILL CONTINUE TO MONITOR.
[2017-05-13] MEDS: CHOLECALCIFEROL 1,000 IU TAB PO SCH (20:29)
[2017-05-13] MEDS: FOLIC ACID 1 MG TAB PO SCH (20:29)
--- NOTE | 2017-05-13 21:00 | NUR ---
MEDICATION EDUCATION GIVEN. PATIENT VERBALIZED UNDERSTANDING. STUDENT NURSE ADMINISTERED PO AND SUPPOSITORY MEDICATION WITH CLINICAL INSTRUCTOR PRESENT. PATIENT TOLERATED WELL.
--- NOTE | 2017-05-13 21:30 | NUR ---
PATIENT VOIDED. PERICARE DONE. PATIENT TOLERATED WELL. BED IN LOWEST POSITION, SIDE RAILS UP AND CALL LIGHT WITHIN REACH. WILL CONTINUE TO MONITOR.
[2017-05-14] VITALS: BP 145/60
[2017-05-14] MEDS: HYDRAGUARD CREAM TP SCH ×2 (00:55→13:19)
[2017-05-14] MEDS: PANTOPRAZOLE 40 MG TABEC PO SCH (06:09)
[2017-05-14] MEDS: NEOMYCIN 500 MG TAB PO SCH ×2 (06:10→21:08)
[2017-05-14 06:59] LABS: BASOPHILS # (AUTO) 0.1 K/uL (0.00-0.22); EOSINOPHILS # (AUTO) 0.2 K/uL (0-0.4); MEAN CORPUSCULAR VOLUME 104 fL (80-94); MONOCYTES # (AUTO) 0.4 K/uL (0.8-1.0); PLATELET COUNT (AUTO) 79 K/uL (140-450); RED CELL DISTRIBUTION WIDTH 19.6 % (11.6-13.7); WHITE BLOOD COUNT (AUTO) 4.3 K/uL (4.8-10.8)
[2017-05-14 07:22] LABS: BASOPHILS % (AUTO) 3.2 % (0.0-2.0); EOSINOPHILS % (AUTO) 5.5 % (0.0-4.0); HEMATOCRIT 22.5 % (36-48); HEMOGLOBIN 7.6 g/dL (12.0-16.0); LYMPHOCYTES # (AUTO) 0.6 K/uL (2.5-16.5); LYMPHOCYTES % (AUTO) 14.8 % (20.5-51.1); MEAN CORPUSCULAR HEMOGLOBIN 35 pg (27-31); MEAN CORPUSCULAR HGB CONC 34 g/dL (33-37); MONOCYTES % (AUTO) 9.3 % (1.7-9.3); NEUTROPHILS % (AUTO) 67.2 % (42.2-75.2); RED BLOOD CELL COUNT(AUTO) 2.16 MIL/uL (4.20-5.40)
--- NOTE | 2017-05-14 07:27 | NUR ---
PATIENT REPORT GIVEN TO MORNING NURSE FOR CONTINUITY OF CARE. PATIENT IS IN STABLE CONDITION.
--- NOTE | 2017-05-14 07:28 | NUR ---
RECEIVED REPORT FROM AM HEAD ROSE GROWER NURSE AT BEDSIDE FOR CONTINUITY OF CARE.PT IN BED SLEEPING. NO ACUTE DISTRESS NOTED. A/O X 4.PLAN OF CARE DISCUSSED WITH PATIENT. CALL LIGHT WITH IN REACH. PT. DENIES ANY PAIN AT THIS TIME. BED ALARM ON.CALL LIGHT WITHIN REACH. PATIENT WITH IV TO RIGHT HAND 22G. SL. PATENT AND INTACT. WILL CONT TO MONITOR.
[2017-05-14 07:44] LABS: ANION GAP 14.7 (8-16); CARBON DIOXIDE 14.5 mmol/L (21-32); POTASSIUM 4.2 mmol/L (3.5-5.1)
[2017-05-14 07:48] LABS: MAGNESIUM 1.6 mg/dL (1.8-2.4); PHOSPHORUS 3.2 mg/dL (2.5-4.9)
[2017-05-14 08:00] VITALS: BP 151/70
[2017-05-14] MEDS: LACTULOSE 20 GM/30 ML UDC PO SCH ×3 (08:50→17:52)
[2017-05-14] MEDS: SPIRONOLACTONE 25 MG TAB PO SCH (08:50)
[2017-05-14] MEDS: LACTOBACILLUS RHAMNOSUS GG 1 EACH CAP PO SCH (08:50)
--- NOTE | 2017-05-14 09:22 | NUR ---
I attempted to call Patient's son Alex Ballard at to discuss patient's status, possible discharge today 05/14/17 and preference for new SNF. Mr. Ballard was not available and I left him a msg to call back as soon as possible.
--- NOTE | 2017-05-14 09:30 | NUR ---
PATIENT ALERT AND ABLE TO VERBALIZE NEEDS . NO ACUTE DISTRESS NOTED. RESP EVEN AND UNLABORED. ON O2 @3L/MIN VIA NC. RESP EVEN AND UNLABORED. LUNG SOUNDS CLEAR. BOWEL SOUNDS ACTIVE X 4 QUADS. PATIENT WITH IV TO RFA 22 G SL. BED ALARM ON . CALL LIGHT WITHIN REACH. WILL CONT TO MONITOR.
[2017-05-14] MEDS: HYDROCORTISONE ACETATE 25 MG SUPP RC SCH ×2 (09:57→21:08)
[2017-05-14] MEDS ORDERED: MAGNESIUM OXIDE 400 MG TAB PO SCH ×2 (10:50→14:00)
[2017-05-14] MEDS ORDERED: LISINOPRIL 10 MG TAB PO SCH (10:50)
[2017-05-14] MEDS ORDERED: RIFAXIMIN 550 MG TAB PO SCH ×2 (10:51→21:00)
--- NOTE | 2017-05-14 11:45 | NUR ---
PT WITH FAMILY AT BEDSIDE. PT DENIES PAIN. CALL LIGHT WITHIN REACH. WILL CONT TO MONITOR.
--- NOTE | 2017-05-14 12:04 | NUR ---
FAXED CONCURRENT REVIEW TO [facility] [phone] PHONE SETH [phone]. I SPOKE WITH SETH THIS MORNING AND INFORMED HER OF ORDER FOR SNF AND INFORMED HER THAT THE PATIENT DOES NOT WANT TO GO BACK TO [facility].
[2017-05-14] MEDS ORDERED: NEOMYCIN 500 MG TAB PO SCH (13:11)
[2017-05-14] MEDS: FERRIC GLUCONATE 125 MG in NACL 0.9% 100 ML IV SCH (13:18)
--- NOTE | 2017-05-14 13:50 | NUR ---
I met with patient, sister and nephew at bedside to discuss and get information in regards to preferences to new SNF. Patient stated she give list to her son and both were able come up with 3 different facilities, however; she was not able to remember which three facilities and stated that her son will be back today with them. I informed Patient that case repairer needs to know as soon as possible, and will be calling to SNF facilities in the list for any bed openings. Patient was on agreement and thank me for my assistance.
--- NOTE | 2017-05-14 13:55 | NUR ---
SS IN TO SEE PATIENT TO DISCUSS PLAN OF DISCHARGE WITH PATIENT AND FAMILY AT BEDSIDE.
--- NOTE | 2017-05-14 14:59 | NUR ---
05/14/17 RD FOLLOW UP COMPLETED. PLEASE REFER TO NUTRITION ASSESSMENT UNDER CARE ACTIVITY FOR ESTIMATED NUTRITIONAL NEEDS. CONTINUE MECHANICAL SOFT DIET TOLERATED. NURSING AND DIETARY STAFF TO ENCOURAGE INCREASED INTAKE MENTAL STATUS IMPROVES. RD TO FOLLOW-UP IN 3-5 DAYS PATIENT IS MODERATE RISK. ANTIONE SALINAS, BON
[2017-05-14 16:00] VITALS: BP 144/66
--- NOTE | 2017-05-14 16:00 | NUR ---
PATIENT IN BED ALERT AND ABLE TO MAKE NEEDS KNOWN. NO ACUTE DISTRESS. DENIES PAIN. PERICARE PERFORMED PT TOLERATED WELL. KEPT WARM AND DRY. WILL CONT TO MONITOR PT.
--- NOTE | 2017-05-14 16:13 | NUR ---
PHYSICAL THERAPY CO-SIGN The Physical Therapy Progress Notes documented by Primary Care Sales Representative have been reviewed. Reviewed/Co-Signed by: Dunia Harrison PT Documentation Done by: Osvaldo Martinez PTA Patient progressing steadily towards Rehab goals. Addendum: 05/15/17 at 1014 by Dunia Harrison PT Amended: Links added.
--- NOTE | 2017-05-14 16:18 | NUR ---
SENT QUERIES FOR ADMISSION TO [facility] AND [facility]. AWAITING CALL BACK.
--- NOTE | 2017-05-14 18:00 | NUR ---
PATIENT IN BED WATCHING TV WITH SON AND FRIEND AT BEDSIDE. NO ACUTE DISTRESS NOTED. DENIES PAIN. CALL LIGHT WITHIN REACH. BED ALARM ON . WILL CONT TO MONITOR.
--- NOTE | 2017-05-14 19:24 | NUR ---
ENDORSED REPORT TO TEA BLENDER NURSE AT BEDSIDE FOR CONTINUITY OF CARE.
--- NOTE | 2017-05-14 19:25 | NUR ---
RECEIVED FROM AM RN IN BED AWAKE AND IN SITTING UP POSITION WATCHING TV. A/O X 4. ABLE TO VERBALIZE NEEDS WELL IN FRISIAN. PT. CARE PLANS FOR THE NIGHT DISCUSSED WITH HER . ORIENTED X 4. CALL LIGHT WITH IN REACH. PT. ABLE TO USE CELL PHONE AND TALKING WITH FAMILY MEMBER. DX. OF UTI, CHANGE OF LOC AND DEHYDRATION. DENIES ANY PAIN AT THIS TIME. RE-ORIENTED TO CALL LIGHT USE AND TO CALL FOR ANY HELP SHE MAY NEED. BED ALARM ON.
[2017-05-14] MEDS: CHOLECALCIFEROL 1,000 IU TAB PO SCH (21:07)
[2017-05-14] MEDS: FOLIC ACID 1 MG TAB PO SCH (21:08)
--- NOTE | 2017-05-14 23:18 | NUR ---
PT. SLEEPING AT THIS TIME. TOTAL CARE. PT. JUST CLEANED UP BY CNAS RT HAD A BM. NO COMPLAINTS DONE. NO RESTLESSNESS NOTED AT THIS TIME.
[2017-05-15] MEDS: HYDRAGUARD CREAM TP SCH ×2 (00:08→12:41)
[2017-05-15 00:47] VITALS: BP 140/68
[2017-05-15] MEDS: NEOMYCIN 500 MG TAB PO SCH ×3 (05:36→21:03)
[2017-05-15] MEDS: PANTOPRAZOLE 40 MG TABEC PO SCH (05:36)
--- NOTE | 2017-05-15 06:22 | NUR ---
PT. BEEN SLEEPING WELL. CALL LIGHT WITH IN REACH. TOTAL CARE RT WEAKNESS. NEEDS ANTICIPATED AND MET. ABLE TO VERBALIZE NEEDS WELL. FOR SNF TRANSFER PLANNING. DX. CHANGE OF LOC. A/O X 4 NOW.
--- NOTE | 2017-05-15 07:20 | NUR ---
RECEIVED REPORT AT BEDSIDE FROM EMERGENCY MEDICINE PHYSICIAN ASSISTANT NURSE FOR CONTINUITY OF CARE.
[2017-05-15 07:29] LABS: BASOPHILS # (AUTO) 0.2 K/uL (0.00-0.22); BASOPHILS % (AUTO) 4.1 % (0.0-2.0); EOSINOPHILS # (AUTO) 0.2 K/uL (0-0.4); EOSINOPHILS % (AUTO) 4.8 % (0.0-4.0); HEMATOCRIT 23.5 % (36-48); HEMOGLOBIN 7.9 g/dL (12.0-16.0); LYMPHOCYTES # (AUTO) 0.7 K/uL (2.5-16.5); MEAN CORPUSCULAR HEMOGLOBIN 35 pg (27-31); MEAN CORPUSCULAR HGB CONC 34 g/dL (33-37); MEAN CORPUSCULAR VOLUME 104 fL (80-94); MONOCYTES # (AUTO) 0.4 K/uL (0.8-1.0); MONOCYTES % (AUTO) 8.8 % (1.7-9.3); NEUTROPHILS # (AUTO) 2.9 K/uL (1.8-7.7); NEUTROPHILS % (AUTO) 66.3 % (42.2-75.2); PLATELET COUNT (AUTO) 76 K/uL (140-450); RED BLOOD CELL COUNT(AUTO) 2.27 MIL/uL (4.20-5.40); RED CELL DISTRIBUTION WIDTH 19.4 % (11.6-13.7); WHITE BLOOD COUNT (AUTO) 4.4 K/uL (4.8-10.8)
[2017-05-15 08:00] VITALS: BP 154/75
--- NOTE | 2017-05-15 08:00 | NUR ---
INITIAL ASSESSMENT DONE. PATIENT ALERT AND ABLE TO VERBALIZE NEEDS. NO ACUTE DISTRESS NOTED. PATIENT ON O2 @3L/MIN VIA NC. RESP EVEN AND UNLABORED. PATIENT WITH ACTIVE BOWEL SOUNDS. PATIENT WITH IV TO R HAND 22G. PATIENT RESTING IN BED WITH EYES CLOSED EASILY WOKEN. WITH SOME ERYTHEMA HYDRAGUARD APPLIED.NO C/O PAIN AT THIS TIME. PLAN OF CARE DISCUSSED WITH PATIENT. CALL LIGHT WITHIN REACH. WILL CONT TO MONITOR.
[2017-05-15] MEDS: SPIRONOLACTONE 25 MG TAB PO SCH (08:41)
[2017-05-15] MEDS: LACTULOSE 20 GM/30 ML UDC PO SCH ×3 (08:41→18:09)
[2017-05-15] MEDS: HYDROCORTISONE ACETATE 25 MG SUPP RC SCH ×2 (08:41→21:03)
--- NOTE | 2017-05-15 08:41 | NUR ---
ADMINISTERED SCHEDULED MEDICATIONS ORDERED. TOLERATED WELL.
[2017-05-15] MEDS: LACTOBACILLUS RHAMNOSUS GG 1 EACH CAP PO SCH (08:42)
[2017-05-15] MEDS: LISINOPRIL 10 MG TAB PO SCH (08:42)
[2017-05-15 08:59] LABS: ANION GAP 12.8 (8-16); CARBON DIOXIDE 17.1 mmol/L (21-32); POTASSIUM 3.9 mmol/L (3.5-5.1)
[2017-05-15 09:14] LABS: MAGNESIUM 1.5 mg/dL (1.8-2.4)
--- NOTE | 2017-05-15 10:41 | NUR ---
These casualty underwriter 2nd day attempting to make contact with Patient's son Alex Ballard at cell to discuss patient's status, possible discharge today 05/15/17 and preference for new SNF. Mr. Ballard was not available and I left him another voicemail msg with my contact information and a request to call back as soon as possible.
[2017-05-15] MEDS ORDERED: MAG SULF 2000 MG/WATER PREMIX 50 ML IV SCH (12:30)
--- NOTE | 2017-05-15 12:41 | NUR ---
ADMINISTERED SCHEDULED MEDICATIONS ORDERED PATIENT TOLERATED WELL. WILL CONT TO MONITOR.
[2017-05-15] MEDS: FERRIC GLUCONATE 125 MG in NACL 0.9% 100 ML IV SCH (13:21)
--- NOTE | 2017-05-15 13:21 | NUR ---
ADMINISTERED FERRLICIT IV . PT TOLERATED WELL. PATIENT ALERT AND ABLE TO MAKE NEEDS KNOWN. WILL CONT TO MONITOR PT.
--- NOTE | 2017-05-15 14:06 | NUR ---
1215 PER ENMA AT [facility] THEY HAVE NO ISOLATION BEDS AND IF PT NEEDS LTC THEY HAVE NO REHABILITATION TEAM LEAD BEDS. PER CHUCHO AT [facility] HAVE NO ISOLATION BEDS. ALON AT [facility] STATED NO ISOLATION BEDS. STILL WAITING FOR CHUCHO AT [facility] TO CALL BACK.
--- NOTE | 2017-05-15 14:36 | NUR ---
CM NOTE CONCURRENT REVIEW FAXED TO [facility] / FAX# [phone], ATTN: SETH #[phone].
--- NOTE | 2017-05-15 15:29 | NUR ---
ADMINISTERED MAG RIDER ORDERED. PATIENT TOLERATED WELL. NO C/O PAIN OR DISCOMFROT . IV PATENT AND INTACT.WILL CONT TO MONITOR PA.
[2017-05-15 16:00] VITALS: BP 159/67
--- NOTE | 2017-05-15 16:40 | NUR ---
PATIENT IN BED WATCHING TV. NO C/O PAIN OR DISCOMFORT. NO ACUTE DISTRESS NOTED. PATIENT CONT ON CONTACT ISOLATION. WILL CONT TO MONITOR PT.
[2017-05-15] MEDS: FERROUS GLUCONATE 324 MG TAB PO SCH (17:00)
--- NOTE | 2017-05-15 18:09 | NUR ---
ADMINISTERED LACTULOSE ORDERED PT TOLERATED WELL. PATIENT IN BED AWAKE WATCHING TV. NO ACUTE DISTRESS NOTED. NO C/O PAIN. SL R HAND. PATENT AND INTACT.WILL CONT TO MONITOR.
--- NOTE | 2017-05-15 19:17 | NUR ---
ENDORSED REPORT TO [employer] NURSE AT BEDSIDE FOR CONTINUITY OF CARE. PATIENT STABLE.
--- NOTE | 2017-05-15 19:18 | NUR ---
RECEIVED FROM AM RN IN BED AWAKE AND ALERT. NO COMPLAINT OF ANY PAIN AT THIS TIME. NO SOB. CALL LIGHT WITH IN REACH AND CARE PLANS FOR THE NIGHT DISCUSSED WITH PT. A/O X 4. ABLE TO VERBALIZE SIMPLE NEEDS WELL. NEEDS WILL BE ANTICIPATED AND WILL BE MET. DX. OF CHANGE OF LOC.
[2017-05-15] MEDS: FOLIC ACID 1 MG TAB PO SCH (21:03)
[2017-05-15] MEDS: CHOLECALCIFEROL 1,000 IU TAB PO SCH (21:03)
--- NOTE | 2017-05-15 22:28 | NUR ---
SLEEPING AT THIS TIME. KEPT DRY AND COMFORTABLE. CALL LIGHT WITH IN REACH AT ALL TIMES. ABLE TO VERBALIZE NEEDS WELL.
--- NOTE | 2017-05-16 00:10 | NUR ---
TURNED TO SIDES Q 2H BY CNAS. PILLLOW SUPPORT TO PRESSURE AREAS. NO FUTHER COMPLAINTS.
[2017-05-16 00:13] VITALS: BP 140/60
[2017-05-16] MEDS: HYDRAGUARD CREAM TP SCH ×2 (01:00→12:15)
--- NOTE | 2017-05-16 02:30 | NUR ---
SLEEPING WELL. KEPT DRY, CLEAN AND COMFORTABLE.
--- NOTE | 2017-05-16 04:36 | NUR ---
PT. CPMNFORTABLE. SLEEPING STILL. NO RESTLESSNESS. NO COMPLAINTS. CALL LIGHT AT BEDSIDE ALL THE TIME.
[2017-05-16] MEDS: NEOMYCIN 500 MG TAB PO SCH (06:16)
[2017-05-16] MEDS: PANTOPRAZOLE 40 MG TABEC PO SCH (06:16)
--- NOTE | 2017-05-16 06:45 | NUR ---
AM PERSONAL HYGIENE CARE RENDERED BY AM SHIFT . NO COMPLAINTS DONE. ABLE TO USE CALL LIGHT FOR HELP.
[2017-05-16 07:05] LABS: BASOPHILS # (AUTO) 0.2 K/uL (0.00-0.22); BASOPHILS % (AUTO) 3.7 % (0.0-2.0); EOSINOPHILS # (AUTO) 0.2 K/uL (0-0.4); HEMATOCRIT 23.9 % (36-48); HEMOGLOBIN 8.2 g/dL (12.0-16.0); LYMPHOCYTES # (AUTO) 0.8 K/uL (2.5-16.5); LYMPHOCYTES % (AUTO) 16.3 % (20.5-51.1); MEAN CORPUSCULAR HEMOGLOBIN 35 pg (27-31); MEAN CORPUSCULAR HGB CONC 34 g/dL (33-37); MEAN CORPUSCULAR VOLUME 104 fL (80-94); MONOCYTES # (AUTO) 0.5 K/uL (0.8-1.0); MONOCYTES % (AUTO) 9.7 % (1.7-9.3); NEUTROPHILS # (AUTO) 3.4 K/uL (1.8-7.7); NEUTROPHILS % (AUTO) 66.3 % (42.2-75.2); PLATELET COUNT (AUTO) 77 K/uL (140-450); RED BLOOD CELL COUNT(AUTO) 2.31 MIL/uL (4.20-5.40); RED CELL DISTRIBUTION WIDTH 18.9 % (11.6-13.7); WHITE BLOOD COUNT (AUTO) 5.1 K/uL (4.8-10.8)
--- NOTE | 2017-05-16 07:14 | NUR ---
REPORT RECEIVED FROM AREA COORDINATOR RN AT BEDSIDE FOR CONTINUITY OF CARE. PATIENT IS ASLEEP, RESTING IN BED. NO SIGNS AND SYMPTOMS OF DISTRESS OR SOB NOTED. PATIENT ON O2 3L VIA NC. IV SITE NOTED ON RIGHT HAND, IVF INFUSING WELL. SAFETY PRECAUTION IN PLACE, BED IN LOWEST POSITION, BED ALARM ON, CALL LIGHT WITHIN REACH. WILL CONTINUE TO MONITOR PATIENT.
[2017-05-16 07:34] LABS: PROTHROMBIN TIME 13.8 secs (10.8-13.4)
[2017-05-16 08:00] VITALS: BP 160/81
[2017-05-16] MEDS ORDERED: MAG SULF 2000 MG/WATER PREMIX 50 ML IV SCH (08:00)
[2017-05-16] MEDS ORDERED: HYDROcodone/APAP 7.5/325 MG 1 TAB PO PRN (08:00)
--- NOTE | 2017-05-16 08:06 | NUR ---
PATIENT'S O2 SATURATION ON 3L O2 VIA NC IS 84-85%, INFORMED DOCTOR SHABBIR, NEW ORDERS PUT IN, RESPIRATORY WAS CALLED TO EVALUATE PATIENT. PATIENT WILL NOW BE PUT ON O2 OXIMIZER 3L. SAFETY PRECAUTION IN PLACE, CALL LIGHT WITHIN REACH, WILL CONTINUE TO MONITOR PATIENT.
[2017-05-16 08:13] LABS: ANION GAP 12.7 (8-16); CARBON DIOXIDE 16.1 mmol/L (21-32); POTASSIUM 3.8 mmol/L (3.5-5.1)
[2017-05-16 08:20] LABS: MAGNESIUM 1.8 mg/dL (1.8-2.4)
--- NOTE | 2017-05-16 08:36 | NUR ---
SPOKE WITH SETH FROM [facility] . SHE SAID SHE SENT INQUIRIES OUT AND SO FAR NO SNF. SHE SAID SHE WOULD CONSIDER DOING AN HILDA IF WE FIND A SNF. PATIENT IS STILL ON ISOLATION, AND MAY NEED RESIDENTIAL.
[2017-05-16] MEDS: LISINOPRIL 10 MG TAB PO SCH (08:43)
[2017-05-16] MEDS: SPIRONOLACTONE 25 MG TAB PO SCH (08:44)
[2017-05-16] MEDS: FERROUS GLUCONATE 324 MG TAB PO SCH ×2 (08:44→17:30)
[2017-05-16] MEDS: HYDROCORTISONE ACETATE 25 MG SUPP RC SCH (08:44)
[2017-05-16] MEDS: LACTOBACILLUS RHAMNOSUS GG 1 EACH CAP PO SCH (08:44)
--- NOTE | 2017-05-16 08:44 | NUR ---
ORDERED MEDICATIONS ADMINISTERED. PATIENT TOLERATED THEM WELL. PATIENT REFUSED SUPPOSITORY. EDUCATED PATIENT ON THE BENEFITS OF THE SUPPOSITORY. PATIENT VERBALIZED UNDERSTANDING BUT STILL REFUSED. PT IN STABLE CONDITION, NO SIGNS OF DISTRESS NOTED. PATIENT DENIES PAIN AT THIS TIME. SAFETY AND ISOLATION PRECAUTION IN PLACE, BED IN LOWEST POSITION, CALL LIGHT WITHIN REACH. WILL CONTINUE TO MONITOR PATIENT.
[2017-05-16] MEDS: LACTULOSE 20 GM/30 ML UDC PO SCH ×3 (08:45→17:30)
--- NOTE | 2017-05-16 08:59 | NUR ---
1532 RECEIVED CALL FROM PT'S SON DANELLE AND DISCUSSED DISCHARGE PLAN FOR PT WITH HIM. HE STATED THAT HE DOES PLAN FOR PT TO GO HOME AFTER SHE HAS REHAB. INFORMED HIM THAT SNF INQUIRIES HAVE BEEN SENT TO [facility], [facility] AND [facility] AND AT THIS TIME NO ACCEPTANCE DUE TO ISOLATION ISSUE AND QUESTION IF PT WILL BE SHORT OR PERFORMANCE ARCHITECT. INFORMED DANELLE WILL [facility]IN[facility].
[2017-05-16] MEDS ORDERED: NADOLOL 20 MG TAB PO SCH (09:00)
[2017-05-16] MEDS ORDERED: RIFAXIMIN 550 MG TAB PO SCH (09:00)
--- NOTE | 2017-05-16 09:00 | NUR ---
PHYSICAL THERAPY IN WITH THE PATIENT. BP 145/71 O2 SATURATION 91%. PATIENT CURRENTLY SITTING IN CHAIR AND WATCHING TV. SAFETY AND ISOLATION PRECAUTION IN PLACE, CALL LIGHT WITHIN REACH. WILL CONTINUE TO MONITOR PATIENT.
--- NOTE | 2017-05-16 09:57 | NUR ---
FAXED CONCURRENT REVIEW TO [facility], PHONE SETH [phone] SPOKE WITH SETH AND INFORMED HER THAT PATIENT OFF ISOLATION. FAXED HER ALSO THE MED LIST.
--- NOTE | 2017-05-16 12:18 | NUR ---
ORDERED MEDICATIONS ADMINISTERED. PATIENT TOLERATED THEM WELL. PT IN STABLE CONDITION, NO SIGNS OF DISTRESS NOTED. O2 SATURATION AT 93%. PATIENT DENIES PAIN AT THIS TIME. SAFETY PRECAUTION IN PLACE, BED IN LOWEST POSITION, CALL LIGHT WITHIN REACH. WILL CONTINUE TO MONITOR PATIENT.
--- NOTE | 2017-05-16 15:16 | NUR ---
7174 SPOKE WITH CRISTINA AT [facility] AND FAXED UPDATED INFORMATION ON PT. PER CRISTINA THEY WILL ACCEPT PT FOR ADMISSION AND SHE CAN GO TO ROOM 12B AND WILL BE ADMITTED UNDER SERVICE OF DR RAMIREZ. REPORT CAN BE CALLED TO [phone]. CALLED [facility] AND SPOKE WITH ANISH AT [phone] AND SHE PROVIDED AUTHORIZATION FOR TRANSPORT [id number] FOR [facility]. CALLED [facility] [phone] AND SPOKE WITH ARIE AND SET UP A W/C TRANSPORT WITH O2 FOR 6PM. PER [facility] WITH BE THERE BETWEEN 6;30 AND 7;30. PT AND INES DANELLE INFORMED OF ARRANGEMENTS AND ARE IN AGREEMENT.
--- NOTE | 2017-05-16 15:45 | NUR ---
PATIENT RESTING IN BED, NOW OFF OXIMIZER AND BACK ON 3L O2 VIA NASAL CANNULA. PATIENT TOLERATING IT WELL. O2 SATURATION AT 93%. PATIENT DENIES PAIN, NO SIGNS OF DISTRESS OR SOB NOTED. SAFETY PRECAUTION IN PLACE, CALL LIGHT WITHIN REACH, WILL CONTINUE TO MONITOR PATIENT.
[2017-05-16 16:00] VITALS: BP 142/68
[2017-05-16] MEDS ORDERED: RIFA550T PO (16:01)
[2017-05-16] MEDS ORDERED: ROC2I IJ (16:06)
[2017-05-16] MEDS ORDERED: LACT1.4C PO (16:07)
[2017-05-16] MEDS ORDERED: ROC2I IV (16:48)
--- NOTE | 2017-05-16 17:30 | NUR ---
ORDERED MEDICATIONS ADMINISTERED. PATIENT TOLERATED THEM WELL. PATIENT RESTING IN BED, NO SIGNS OF DISTRESS OR SOB NOTED. PATIENT DENIES PAIN. SAFETY PRECAUTION IN PLACE, CALL LIGHT WITHIN REACH, WILL CONTINUE TO MONITOR PATIENT.
--- NOTE | 2017-05-16 18:00 | NUR ---
PATIENT REPORT GIVEN TO RNELIGIO, AT [id number]. PATIENT CURRENTLY SITTING IN BED, NO SIGNS OF DISTRESS OR SOB NOTED. PATIENT DENIES PAIN. SAFETY PRECAUTION IN PLACE, CALL LIGHT WITHIN REACH, WILL CONTINUE TO MONITOR PATIENT.
--- NOTE | 2017-05-16 18:25 | NUR ---
PATIENT DISCHARGE INSTRUCTION AND EDUCATION GIVEN TO PATIENT. PATIENT VERBALIZED UNDERSTANDING. PER KAVITHA DEL VALLE AT [facility], THEY WOULD LIKE THE IV INTACT. ID BANDS CUT, PATIENT RESTING IN BED, INFORMED HER THAT [facility] WILL BE COMING AT [phone]. PATIENT VERBALIZED UNDERSTANDING. PATIENT CHANGED INTO TRANSPORT GOWN AND PREPARED FOR [facility] TO ARRIVE. PATIENT IN STABLE CONDITION. SAFETY PRECAUTION IN PLACE, CALL LIGHT WITHIN REACH, WILL CONTINUE TO MONITOR PATIENT.
--- NOTE | 2017-05-16 18:55 | NUR ---
PATIENT WHEELED OFF THE FLOOR BY [facility] TO BE TRANSFERRED TO [facility]. PATIENT TOOK ALL OF HER BELONGINGS WITH HER. PATIENT IN STABLE CONDITION.
== END 2017-05-16 18:55 | DRG 441 ==
LOC: MED 18:33 → MTU 21:41
PROVIDERS: ADMIT Family Medicine Sports Medicine; ATTEND Family Medicine Sports Medicine
PROC: 0DJD8ZZ Inspection of Lower Intestinal Tract, Via Natural or Artificial Opening Endoscopic (ICD-10-PCS; principal; 2017-05-14)
DX: K72.90 Hepatic failure, unspecified without coma (principal); E43 Unspecified severe protein-calorie malnutrition; G93.41 Metabolic encephalopathy; E87.0 Hyperosmolality and hypernatremia; D69.6 Thrombocytopenia, unspecified; K76.6 Portal hypertension; E87.8 Other disorders of electrolyte and fluid balance, not elsewhere classified; E83.42 Hypomagnesemia; N39.0 Urinary tract infection, site not specified; W18.39XA Other fall on same level, initial encounter; E86.0 Dehydration; K74.60 Unspecified cirrhosis of liver; D53.9 Nutritional anemia, unspecified; E80.6 Other disorders of bilirubin metabolism; J45.909 Unspecified asthma, uncomplicated; K21.9 Gastro-esophageal reflux disease without esophagitis; S70.01XA Contusion of right hip, initial encounter; B96.20 Unspecified Escherichia coli [E. coli] as the cause of diseases classified elsewhere; I10 Essential (primary) hypertension; E87.6 Hypokalemia; D25.9 Leiomyoma of uterus, unspecified; K57.90 Diverticulosis of intestine, part unspecified, without perforation or abscess without bleeding; K64.8 Other hemorrhoids; Z88.0 Allergy status to penicillin; Z91.013 Allergy to seafood; Z79.899 Other long term (current) drug therapy; Z68.22 Body mass index [BMI] 22.0-22.9, adult; Y93.89 Activity, other specified; Y92.89 Other specified places as the place of occurrence of the external cause; Y99.8 Other external cause status
CPT/HCPCS: 36415; 70450; 71045; 72192; 73502; 76705; 76770; 80048; 80053; 81001; 82140; 82272; 82550; 82607; 82728; 82746; 83036; 83540; 83605; 83735; 83880; 84100; 84436; 84443; 84479; 84484; 85025; 85045; 85610; 85730; 86704; 86706; 86708; 86709; 86803; 87040; 87081; 87086; 87186; 87340; 92610; 93005; 96361; 96365; 96375; 97110; 97116; 97140; 97530; 97799; 99285; C1758; C9113; J0696; J1200; J1956; J2001; J2250; J2270; J2916; J3010; J3420; J3475; J3480; J7030; J7060; J7120; Q0092